=== PATIENT | male | born 1970 | race Two or more races ===

== ENCOUNTER → 2017-04-23 06:22 | Outpatient (CLI) | payer OTHER ==
[~2017-04-23 06:22] MED LIST: COZAAR25 MG; KETO10TA2 PO; MICARDIS80 MG PO
== END | disposition home or self-care (01) ==
LOC: LAB 06:22
DX: I10 Essential (primary) hypertension (principal); Z12.11 Encounter for screening for malignant neoplasm of colon; Z12.5 Encounter for screening for malignant neoplasm of prostate; Z13.1 Encounter for screening for diabetes mellitus

== ENCOUNTER → 2017-04-23 06:25 | Outpatient (CLI) | payer OTHER | END | disposition home or self-care (01) | LOC: RAD 06:25 | DX: M25.521 Pain in right elbow (principal) ==

== ENCOUNTER → 2017-06-13 | Emergency (ER) | payer OTHER ==
[~2017-06-13] VITALS: Ht 177.8 cm; Wt 113.4 kg
[~2017-06-13] MED LIST changes: +COZAAR100 MG; +INDOMETHACIN75 MG PO; +ZYLOPRIM100 MG PO
== END | disposition home or self-care (01) ==
LOC: ER 05:34
DX: M79.672 Pain in left foot (principal)

== ENCOUNTER 2017-08-20 16:28 | Emergency (ER) | payer OTHER ==
[~2017-08-20] VITALS: Ht 175.3 cm; Wt 99.8 kg
== END 2017-08-20 23:30 | disposition home or self-care (01) ==
LOC: ER 16:28
DX: I10 Essential (primary) hypertension (principal)

== ENCOUNTER 2018-08-15 16:13 | Emergency (ER) | payer OTHER ==
[~2018-08-15] VITALS: Ht 182.9 cm; Wt 116.1 kg
[2018-08-15] MEDS ORDERED: DICLOFENAC POTA50 MG PO (18:37)
[2018-08-15] MEDS ORDERED: SKELAXIN800 MG PO (18:37)
== END 2018-08-15 19:12 | disposition home or self-care (01) ==
LOC: ER 16:13
DX: M54.5 Low back pain (principal)

== ENCOUNTER 2018-08-23 14:37 | Emergency (ER) | payer OTHER ==
[~2018-08-23] VITALS: Ht 182.9 cm; Wt 117.9 kg
[~2018-08-23 14:37] MED LIST changes: +DICLOFENAC POTA50 MG PO; +SKELAXIN800 MG PO
== END 2018-08-23 17:04 | disposition home or self-care (01) ==
LOC: ER 14:37
DX: B02.9 Zoster without complications (principal)

== ENCOUNTER → 2019-03-10 06:42 | Outpatient (CLI) | payer OTHER | END | disposition home or self-care (01) | LOC: LAB 06:42 | DX: J11.1 Influenza due to unidentified influenza virus with other respiratory manifestations (principal); R05 Cough; R09.81 Nasal congestion ==

== ENCOUNTER 2019-08-20 15:05 | Emergency (ER) | payer OTHER ==
[~2019-08-20] VITALS: Ht 182.9 cm; Wt 113.4 kg
[2019-08-20] MEDS ORDERED: LOSARTAN-HCTZ1 EAC2 PO (15:31)
== END 2019-08-20 18:54 | disposition home or self-care (01) ==
LOC: ER 15:05
DX: S61.021A Laceration with foreign body of right thumb without damage to nail, initial encounter (principal); W45.8XXA Other foreign body or object entering through skin, initial encounter; Y93.89 Activity, other specified; Y92.89 Other specified places as the place of occurrence of the external cause; Y99.8 Other external cause status

== ENCOUNTER 2019-08-27 07:39 | Emergency (ER) | payer OTHER ==
[~2019-08-27] VITALS: Ht 182.9 cm; Wt 113.4 kg
[~2019-08-27 07:39] MED LIST changes: +LOSARTAN-HCTZ1 EAC2 PO
[2019-08-27] MEDS ORDERED: CIPRO500 MG PO (08:53)
== END 2019-08-27 09:05 | disposition home or self-care (01) ==
LOC: ER 07:39
DX: Z48.02 Encounter for removal of sutures (principal)

== ENCOUNTER 2020-06-16 07:37 | Emergency (ER) | payer OTHER ==
[~2020-06-16] VITALS: Ht 182.9 cm; Wt 113.4 kg
[~2020-06-16 07:37] MED LIST changes: +CIPRO500 MG PO
== END 2020-06-16 16:20 | disposition home or self-care (01) ==
LOC: ER 07:37
DX: R10.32 Left lower quadrant pain (principal)

== ENCOUNTER 2020-08-21 08:50 | Outpatient (CLI) | payer OTHER | END 2020-08-21 09:02 | disposition home or self-care (01) | LOC: RAD 08:50 | PROVIDERS: ATTEND General Practice | DX: M25.511 Pain in right shoulder (principal); M75.51 Bursitis of right shoulder ==

== ENCOUNTER → 2020-09-14 06:08 | Outpatient (CLI) | payer OTHER | END | disposition home or self-care (01) | LOC: LAB 06:08 | PROVIDERS: ATTEND General Practice | DX: Z00.01 Encounter for general adult medical examination with abnormal findings (principal); Z68.36 Body mass index [BMI] 36.0-36.9, adult; E66.9 Obesity, unspecified; Z12.11 Encounter for screening for malignant neoplasm of colon; Z12.5 Encounter for screening for malignant neoplasm of prostate; Z13.0 Encounter for screening for diseases of the blood and blood-forming organs and certain disorders involving the immune mechanism ==

== ENCOUNTER 2021-01-16 18:49 | Emergency (ER) | payer OTHER ==
[~2021-01-16] VITALS: Ht 182.9 cm; Wt 120.2 kg
[2021-01-17] MEDS ORDERED: LEVSIN/SL0.125 MG SL (01:19)
[2021-01-17] MEDS ORDERED: CIPRO500 MG PO (01:19)
[2021-01-17] MEDS ORDERED: FLAGYL500MG PO (01:19)
== END 2021-01-17 01:24 ==
LOC: ER 18:49
DX: K57.90 Diverticulosis of intestine, part unspecified, without perforation or abscess without bleeding (principal); Z03.818 Encounter for observation for suspected exposure to other biological agents ruled out

== ENCOUNTER 2022-02-19 11:17 | Emergency (ER) | payer OTHER ==
[~2022-02-19] VITALS: Ht 182.9 cm; Wt 117.9 kg
[~2022-02-19 11:17] MED LIST changes: +FLAGYL500MG PO; +LEVSIN/SL0.125 MG SL
== END 2022-02-19 21:15 | disposition home or self-care (01) ==
LOC: ER 11:17
DX: K57.90 Diverticulosis of intestine, part unspecified, without perforation or abscess without bleeding (principal); R10.32 Left lower quadrant pain; I10 Essential (primary) hypertension

== ENCOUNTER 2022-03-02 08:59 | Inpatient (IN) | payer OTHER ==
[~2022-03-02] VITALS: Ht 182.9 cm; Wt 117.9 kg
[2022-03-04] MEDS ORDERED: LOSARTAN-HCTZ1 EAC2 PO (10:53)
[2022-03-11] MEDS ORDERED: NEURONTIN300 MG PO (12:38)
[2022-03-11] MEDS ORDERED: LEVSIN/SL0.125 MG SL (12:38)
[2022-03-11] MEDS ORDERED: PERCOCET 5-3251 EACH PO (12:38)
[2022-03-11] MEDS ORDERED: INTESTINEX680 M1 PO (12:38)
== END 2022-03-11 13:29 | disposition home or self-care (01) | DRG 331 ==
LOC: O/R 03-08 05:10 → SURH 03-08 07:00
PROVIDERS: ADMIT Surgery; ATTEND Surgery
PROC: 0DBP4ZZ Excision of Rectum, Percutaneous Endoscopic Approach (ICD-10-PCS; 2022-03-08)
PROC: 0DN84ZZ Release Small Intestine, Percutaneous Endoscopic Approach (ICD-10-PCS; 2022-03-08)
PROC: 0DJD8ZZ Inspection of Lower Intestinal Tract, Via Natural or Artificial Opening Endoscopic (ICD-10-PCS; 2022-03-08)
PROC: 0DTN4ZZ Resection of Sigmoid Colon, Percutaneous Endoscopic Approach (ICD-10-PCS; principal; 2022-03-08 07:00)
DX: K57.32 Diverticulitis of large intestine without perforation or abscess without bleeding (principal); R19.4 Change in bowel habit; K66.0 Peritoneal adhesions (postprocedural) (postinfection); R10.9 Unspecified abdominal pain; Z20.822 Contact with and (suspected) exposure to COVID-19

== ENCOUNTER → 2022-03-15 | Outpatient (CLI) | payer OTHER ==
[~2022-03-15] MED LIST changes: +INTESTINEX680 M1 PO; +NEURONTIN300 MG PO; +PERCOCET 5-3251 EACH PO
== END | disposition home or self-care (01) ==
LOC: NUCLEAR 08:12
PROVIDERS: ATTEND Specialist
DX: R60.9 Edema, unspecified (principal); Z91.013 Allergy to seafood

== ENCOUNTER 2022-11-19 12:54 | Outpatient (CLI) | payer OTHER | END 2022-11-19 12:56 | disposition home or self-care (01) | LOC: NUCLEAR 12:54 | PROVIDERS: ATTEND Physical Medicine & Rehabilitation | DX: M81.0 Age-related osteoporosis without current pathological fracture (principal); M47.816 Spondylosis without myelopathy or radiculopathy, lumbar region ==

== ENCOUNTER 2024-06-08 07:00 | Outpatient (CLI) | payer OTHER | END 2024-06-08 07:07 | disposition home or self-care (01) | LOC: RAD 07:00 | PROVIDERS: ATTEND Specialist | DX: M77.32 Calcaneal spur, left foot (principal) ==